=== PATIENT | female | born 1965 | race American Indian/Alaskan Native ===

== ENCOUNTER 2020-06-27 11:27 | Outpatient (CLI) | payer OTHER ==
--- NOTE | 2020-06-27 15:01 | XRay Report ---
Cervical spine 3 views INDICATION: Neck pain FINDINGS: Endplate changes are seen with anterior disc osteophyte C5-C6. No prevertebral soft tissue swelling. Uncovertebral degenerative changes seen throughout. Odontoid appears normal. Right shoulder 3 views INDICATION: Pain FINDINGS: Glenohumeral joint and AC joint appear normal. No acute fracture or dislocation. Left shoulder 3 views INDICATION: Pain FINDINGS: Glenohumeral joint and AC joint appear normal. There is degenerative change of the greater tuberosity and rotator cuff attachment. No acute fractures seen. Lumbar spine 3 views INDICATION: Back pain FINDINGS: Discogenic degenerative changes advanced endplate changes at L4-5 and L5-S1. Anterior poste rior disc osteophyte with facet arthropathy. Sacrum appears normal. Left knee 4 views INDICATION: Pain FINDINGS: Alignment appears normal. Mild tricompartmental degenerative osteoarthrosis. No large effus ion is seen. No acute fracture. Pelvis and bilateral hips 3 views INDICATION: Pain FINDINGS: Bilateral femoral heads well-seated in this time. Mild degenerative change bilateral hips. Superior and inferior pubic rami appear intact. No acute fracture. Signer Name: Darrell Slaughter MD Signed: 06/27/2020 2:57 PM Workstation Name: [id number]
== END 2020-06-27 11:28 | disposition home or self-care (01) ==
LOC: XRAY 11:27
PROVIDERS: ATTEND Internal Medicine
DX: M19.012 Primary osteoarthritis, left shoulder (principal); M17.12 Unilateral primary osteoarthritis, left knee; M47.817 Spondylosis without myelopathy or radiculopathy, lumbosacral region; M25.78 Osteophyte, vertebrae; M16.0 Bilateral primary osteoarthritis of hip; M47.812 Spondylosis without myelopathy or radiculopathy, cervical region; M51.37 Other intervertebral disc degeneration, lumbosacral region
CPT/HCPCS: 72040; 72100; 73521